=== PATIENT | male | born 2000 | race Caucasian/White ===

== ENCOUNTER 2022-01-13 10:35 | Inpatient (IN) | payer BC, SELFPAY ==
[2022-01-13 10:39] VITALS: BP 124/82; BP 136/90; PULSE 77; PULSE 90; RESP 16; TEMP 36.8; O2SAT 98; BMI 15.2
--- NOTE | 2022-01-13 10:40 | ED_ITS ---
HPI - Psych General Chief Complaint: Psychiatric Symptoms Stated Complaint: SI FROM AM AMENA Time Seen by Provider: 01/13/22 10:40 Source: patient Mode of arrival: EMS Limitations: no limitations History of Present Illness HPI Narrative: 21 yo male with hx of depression not on medications has been having SI thoughts with a plan for the past two weeks, let college staff know he had a knife in his room MD complaint: suicidal ideation and feels depressed Onset (ago): week(s) (2) Duration: getting worse History of same: No Relieving factors: none Exacerbating factors: other Context: significant life stressor Associated psychiatric symptoms: depression and suicidal ideation Associated symptoms: denies other symptoms Treatments prior to arrival: none If self harm: admits thoughts of self harm and has plan Related Data Allergies Allergy/AdvReac Type Severity Reaction Status Date / Time No Known Allergies Allergy Verified 01/13/22 10:54 Review of Systems Review of Systems: Constitutional : No Fever, No Chills ENT/Mouth : No Ear Pain, No Nasal Congestion, No sore throat Eyes: No Eye Pain, No Swelling, No Redness Cardiovascular : No Chest Pain, No SOB Respiratory : No Cough, No Sputum, No Dyspnea Gastrointestinal : No Nausea, No Vomiting, No Diarrhea, No Hematochezia, No Melena Genitourinary : No Dysuria, No Urinary Frequency, No Hematuria Musculoskeletal : No Myalgias Skin : No Skin Lesions, No rash Neuro : No Weakness, No Numbness, No Paresthesias, No Dizziness, No Headache Psych : positive Anxiety, positive Depression, positive SI no HI Heme/Lymph: No Lymphadenopathy Endocrine : No Polyuria, No Polydipsia All other systems reviewed and are negative [facility] Past Medical History Medical History (Updated 01/13/22 @ 11:12 by Annel Gaspar DO) Depression Social History Social History (Updated 01/13/22 @ 11:10 by Annel Gaspar DO) Alcohol intake: never Patient Tobacco Use Status: Never used Tobacco Smoked in Last 30 Days: No Use of substances other than those prescribed or required for medical reasons: No Physical Exam Vital Signs: Vital Signs: Last Vital Signs Temp 98.3 F 01/13/22 10:39 Pulse 90 01/13/22 10:39 Resp 16 01/13/22 10:39 BP 136/90 H 01/13/22 10:39 Pulse Ox 98 01/13/22 10:39 O2 Del Method 11/02/22 10:39 BMI result Body Mass Index 15.2 Appearance: Alert. Oriented X3. No acute distress. Calm and cooperative Eyes: Pupils equal, round and reactive to light. ENT: Pharynx normal. Neck: Normal inspection. Neck supple. CVS: Normal heart rate and rhythm. Pulses normal. Respiratory: No respiratory distress. Breath sounds normal. Abdomen: Soft and nontender. Skin: Skin warm and dry. Normal skin color. Normal skin turgor. Extremities: No lower extremity edema. No calf ttp Neuro: Oriented X 3. No motor deficit. No sensory deficit. CN2-12 intact Course Course Course Narrative: Physician observation started at 1111am Patient placed in physician observation because the patient needed more time for CARE team to assess the need for psych admission. At the time observation was started the patient's vitals were stable, patient is alert and oriented but slightly anxious. Neuro: nonfocal, CV RRR, Lungs clear MDM - Psych MDM Narrative Medical decision making narrative: 21 yo male with hx of depression here with SI and plan - will need labs, and referral to CARE team. Has no medical complaints. Discharge Plan Discharge Clinical Impression: Depression Patient Disposition: Still a Patient
--- NOTE | 2022-01-13 11:06 | PC.NURSE ---
Patient reports that he told [employer] that he had a knife in his room. He stopped a suicide attempt on Tuesday. Reports he has not done any school work for 2 weeks and that he is supposed to be tested for ADHD next week at some point.
[2022-01-13 11:40] LABS: MANUAL DIFF FLAG NO
[2022-01-13 11:41] LABS: Basophils Percent Auto 0.8 % (0-2); Eosinophils Absolute Auto 0.4 X10*3/uL (0.0-0.4); Hematocrit 44.6 % (42.0-52.0); Imm Gran Abs Auto 0.01 X10*3/uL (0.00-0.03); Imm Gran Pct Auto 0.2 % (0.0-0.4); Lymphocytes Absolute Auto 1.6 X10*3/uL (1.2-4.9); Lymphocytes Percent Auto 31.1 % (20-40); Mean Corpuscular HGB Conc 33.6 g/dl (31.0-36.0); Mean Corpuscular Hemoglobin 29.6 pg (27.0-33.0); Mean Corpuscular Volume 88.1 fL (80.0-98.0); Monocytes Absolute Auto 0.4 X10*3/uL (0.1-1.2); Neutrophils Absolute Auto 2.7 x10*3/uL (2.0-8.3); Neutrophils Percent Auto 53.9 % (45-73); Platelet Count 244 X10*3/uL (160-400); Red Blood Count 5.06 X10*6/uL (4.60-5.80); Red Cell Distribution Width 12.7 % (11.0-16.0)
[2022-01-13 11:58] LABS: Alanine Aminotransferase 12 U/L (0-40); Albumin Level 4.9 g/dL (3.5-5.0); Alkaline Phosphatase 92 U/L (39-117); Anion Gap 14 (12-20); Aspartate Amino Transferase 20 U/L (5-37); Bilirubin Direct 0.3 mg/dL (0.0-0.5); Bilirubin Total 0.6 mg/dL (0.0-1.0); Blood Urea Nitrogen 11 mg/dL (9-16); Calcium 9.5 mg/dL (8.4-10.2); Carbon Dioxide 25 mmol/L (22-29); Chloride 105 mmol/L (96-108); Creatinine Clr Calc Pharmacy 92.9; Estimated Glomerular Filt Rate > 60; Glucose Random 82 mg/dL (60-115); Sodium 140 mmol/L (135-145); Total Protein 7.4 g/dL (6.5-8.0)
[2022-01-13 12:01] LABS: Amphetamine Screen Urine Not Detected (Not Detect); Barbiturates, Urine Not Detected (Not Detect); Benzodiazepines Screen Urine Not Detected (Not Detect); COVID-19 Test Negative (Negative); Cannabinoid Screen Urine Not Detected (Not Detect); Cocaine Screen Urine Not Detected (Not Detect); Fentanyl, urine Not Detected (Not Detect); IDNOW Serial# 55D5AD1C; Opiate Screen Urine Not Detected (Not Detect); Phencyclidine Screen Urine Not Detected (Not Detect)
[2022-01-13 18:52] VITALS: BP 119/81; PULSE 90; RESP 16; TEMP 36.8; O2SAT 100
--- NOTE | 2022-01-13 19:19 | PC.NURSE ---
Addendum entered by Lyndsey Gallardo RN 01/14/22 00:07: report given to DUSTIN Marshall Original Note: report received from DUSTIN Rahman pt is alert and oriented no signs of acute distress notice breathing equally unlabored pt watching tv comfortably
--- NOTE | 2022-01-14 01:22 | PC.ADMIT ---
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 PT DID NOT DISCLOSE WHAT THE PLAN WAS, HE WAS VAGUE IN HIS ASSESSMENT. CONDITIONAL VOLUNTARY. 15 MIN CHECKS. PSYCH GROUP. COVID NEGATIVE. VITAL SIGNS WNL. NOT CURRENTLY ON ANY MEDICATIONS. THIS IS HIS FIRST PSYCHIATRIC ADMISSION. PT IS FROM [place] BUT HAS MOVED TO [place] FOR COLLEGE. PT HAS BEEN HAVING A DIFFICULT TIME FINDING MOTIVATION TO GO TO CLASSES AND WORK. PT APPEARS WITHDRAWN AND ANXIOUS. 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 PT REPORTS ISOLATING FOROM HIS FRIENDS RECENTLY. PT DENIES CURRENT PLAN OR INTENT AND WILL ALERT STAFF IF HAVING SUICIDAL THOUGHTS. NO HI/AH/VH. PT REPORTS MODERATE DEPRESSION AND MILD ANXIETY. PT REPORTS DIFFICULTY ATTENDING TO ADLS BUT IS EATING AND SLEEPING ADEQUATELY. PTS TOX SCREEN WAS NEGATIVE AND DOES NOT USE TOBACCO. PT REQUESTED THE INFLUENZA VACCINATION WHILE ADMITTED. PT FEELS SAFE ON THE UNIT.
[2022-01-14 07:00] VITALS: BMI 14.4
[2022-01-14 08:02] VITALS: BP 122/81; PULSE 86; RESP 18; TEMP 36.1; O2SAT 99
--- NOTE | 2022-01-14 08:27 | PC.NURSE ---
Pt declined flu shot at this time. Though previously requesting one, pt no longer wants.
--- NOTE | 2022-01-14 09:00 | ECG_ITS ---
Test Reason : qtc check Blood Pressure : / mmHG Vent. Rate : 070 BPM Atrial Rate : 070 BPM P-R Int : 172 ms QRS Dur : 082 ms QT Int : 354 ms P-R-T Axes : 060 091 067 degrees QTc Int : 382 ms Normal sinus rhythm Rightward axis Early repolarization Borderline ECG No previous ECGs available Referred By: Loly Rae Electronically Signed By:BART REMY MD
[2022-01-14 09:01] LABS: Cholesterol 174 mg/dL; HDL Cholesterol 65 mg/dL; LDL Cholesterol Calculated 95 mg/dl; Magnesium 2.3 mg/dL (1.6-2.6); Triglycerides 74 mg/dL
[2022-01-14 09:02] LABS: Estimated Average Glucose 100 mg/dL; Hemoglobin A1c % 5.1 %
[2022-01-14 09:24] LABS: Free T4 (Free Thyroxine) 1.14 ng/dL (0.71-1.85); Thyroid Stimulating Hormone 1.41 uIU/mL (0.32-4.0)
--- NOTE | 2022-01-14 09:58 | PC.NURSE ---
Pt declined to participate in Safety Tool documentation x2.
--- NOTE | 2022-01-14 10:20 | P.HPPS_ITS ---
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 Pt reports that over the years, he'll intermittently have times when he feels demotivated and not do work, but this only lasts for 3 day maxium and would resolve on it's own, often the deadline for work getting him to focus and compl ete work. For no clear reason, starting about 2 weeks ago, patient had a bout of feeling unmotivated and for the weekend, did not do any homework, he was not worried about it and assumed the he would soon get over it soon like always. However, this lack of motivation persisted and even towards the end of the week, w/ deadlines looming, he had no motivation to do anything...He was not initially aware of feeling depressed but endorses diminished interest in things, increased guilt, lower concentration, low appetite and sleeping more often; he also started to feel depressed. His friends got him to ok and email to his proferssors asking for extensions (and for a counseling appt), but says w/out their effort he'd have never bothered to email. Pt sleeping more, not going to class in the mornings. This past week he started having angry feeling toward himself and remembers saying over and over i hate myself. The other night, he got a knife and held it to his wrist. He does not think he had any intention or self-harm, but for some reason he wanted the experience of hold the knife as such. The next day he went to first counseling appointment who had him present to the ED. Pt denies any alcohol/drug abuse at all, seldom even drinking alcohol. Denies hx of manic behaviors or episodes; denies trauma hx. No hx of self-harm. No AVH. Pt denies any SI at all. He does acknowledge the the tho ughts about hating himself have likely been there for a long time, but that he's ignored them. Pt ammenable to starting Prozac (typewriter assembly and parts inspector reviewed risks/side- effects and printed/provided [employer] extensive list of potential side- effects). Past Psychiatric History: None No history of medication trials Medical Evaluation Reviewed: Hospitalist Sunny Pending [facility] Medical History (Updated 01/15/22 @ 09:12 by Irving Martinez MD) Depression MDD (major depressive disorder), recurrent episode Family History: Brother: rhonda Social History: grew up in [place] with his supportive parents and brother Sophomore year at [employer], majoring in chemistry Substance History: denies Trauma History: denies Diagnostics Vital Signs (24Hr): Vital Signs - 24 hr 01/13/22 10:39 01/13/22 18:52 01/14/22 08:02 Temperature 98.3 F 98.2 F 96.9 F Pulse Rate 90 90 86 Respiratory Rate 16 16 18 Blood Pressure 136/90 H 119/81 122/81 Pulse Oximetry 98 100 99 Oxygen Delivery Method Room Air Room Air Room Air BMI result Body Mass Index 15.2 Labs Results: 01/13/22 11:30 01/13/22 11:30 Labs: Laboratory Results - last 48 hr 01/13/22 01/13/22 01/13/22 11:30 11:30 11:30 WBC 5.0 RBC 5.06 Hgb 15.0 Hct 44.6 MCV 88.1 MCH 29.6 MCHC 33.6 RDW 12.7 Plt Count 244 MPV 10.0 Immature Gran % (Auto) 0.2 Neut % (Auto) 53.9 Lymph % (Auto) 31.1 [place] % (Auto) 7.0 Eos % (Auto) 7.0 H Baso % (Auto) 0.8 Lymph # (Auto) 1.6 [place] # (Auto) 0.4 Eos # (Auto) 0.4 Baso # (Auto) 0.0 Abs Immat Gran (auto) 0.01 Absolute Neuts (auto) 2.7 Absolute Nucleated RBC 0.000 Nucleated RBC % (auto) 0.0 Sodium 140 Potassium 4.0 Chloride 105 Carbon Dioxide 25 Anion Gap 14 BUN 11 Creatinine 0.82 Estim Creat Clear Calc 92.9 Estimated GFR > 60 Random Glucose 82 Estimat Average Glucose Hemoglobin A1c % Calcium 9.5 Magnesium Total Bilirubin 0.6 Direct Bilirubin 0.3 AST 20 ALT 12 Alkaline Phosphatase 92 Total Protein 7.4 Albumin 4.9 Triglycerides Cholesterol LDL Cholesterol, Calc HDL Cholesterol TSH Free T4 Urine Opiates Screen Urine Fentanyl Screen Ur Barbiturates Screen Ur Phencyclidine Scrn Ur Amphetamines Screen U Benzodiazepines Scrn Urine Cocaine Screen U Marijuana (THC) Screen COVID-19 (ROLAND) Negative COVID-19 Clin Com See Note 01/13/22 01/14/22 01/14/22 11:30 08:06 08:06 WBC RBC Hgb Hct MCV MCH MCHC RDW Plt Count MPV Immature Gran % (Auto) Neut % (Auto) Lymph % (Auto) [place] % (Auto) Eos % (Auto) Baso % (Auto) Lymph # (Auto) [place] # (Auto) Eos # (Auto) Baso # (Auto) Abs Immat Gran (auto) Absolute Neuts (auto) Absolute Nucleated RBC Nucleated RBC % (auto) Sodium Potassium Chloride Carbon Dioxide Anion Gap BUN Creatinine Estim Creat Clear Calc Estimated GFR Random Glucose Estimat Average Glucose 100 Hemoglobin A1c % 5.1 Calcium Magnesium 2.3 Total Bilirubin Direct Bilirubin AST ALT Alkaline Phosphatase Total Protein Albumin Triglycerides 74 Cholesterol 174 LDL Cholesterol, Calc 95 HDL Cholesterol 65 TSH 1.41 Free T4 1.14 Urine Opiates Screen Not Detected Urine Fentanyl Screen Not Detected Ur Barbiturates Screen Not Detected Ur Phencyclidine Scrn Not Detected Ur Amphetamines Screen Not Detected U Benzodiazepines Scrn Not Detected Urine Cocaine Screen Not Detected U Marijuana (THC) Screen Not Detected COVID-19 (ROLAND) COVID-19 Clin Com Meds/Allergies Allergies Allergies Allergy/AdvReac Type Severity Reaction Status Date / Time No Known Allergies Allergy Verified 01/13/22 10:54 Mental Status Exam Mental Status Exam Narrative: Pt is alert and oriented; behavior is cooperative, anxious; patient is not in distress; dressed in hospital attire with adequate hygiene; mood is described as anxious and affect congruent; eye contact appropriate; Speech is normal rate, volume and prosody and not pressured; no psychomotor agitation/retardation present; thought process is organized and goal directed; Thought content is on tx; otherwise pertinent to relevant topics and without any delusional content, paranoid ideations or grandiosity; denies any SI/HI. There is no evidence of perceptual disturbance. Patients insight and judgment appear intact. 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 Patient meets criteria for MDD; amenable to starting Prozac. Patient also scheduled for testing for ADHD at his school Currently SI has fully resolved and patient says he was never really close to hurting himself and remains future oriented, but is now aware that he is struggling with depression and needs help to process his feelings of low self-w orth. Patient has a going anxiety about missing more school work and is hoping to get back to school as soon as possible. Patient has support network, both friends and now with school administration as he already has counseling appointment established. Patient's parents both know. If patient remains stable he may be ready for discharge soon. Plan: CV Q 15 minute checks Will likely start Prozac after patient reads about side effect risks Seek to gather more collateral Patient educated on: diagnosis and medication risk/benefits Informed Consent: understands Reason for continued inpatient stay Substantial Risk for: rapid decompensation
[2022-01-14 10:29] LABS: Folate 7.9 ng/mL (> or = 4.0); Vitamin B12 507 pg/mL (200-900)
[2022-01-14 16:00] VITALS: BP 112/62; PULSE 71; TEMP 37.2
[2022-01-14] MEDS: Acetaminophen 325 MG TABLET 650 MG PO (21:33)
--- NOTE | 2022-01-15 09:16 | P.PNPSI_ITS ---
Subjective Subjective Date of Service: 01/15/22 Reason For Visit: Recurrent Major Depression w/ SI Interim History: pt reports he's feeling better today; he had visits from friends both yesterday and today. He feels he's getting help and says he knows he needs to continue with therapy on discharge; web content writer again discussed patient's intermittent self- deprecating thoughts and he continues to agree that therapy will be essential for this. He likes his therapist at school; he is a little bothered because she, in his mind, described inpatient unit in a very different way than his experience; however he says he realizes that bothers him more than it should and would like to resume with her. Patient read through extensive side effect risks of Prozac and agrees to start trial. Patient has talked to his mom who feels relieved. He is also talked to counselors at school and so far he has been told that most of his professors feel that he can make up the work missed over the past 1.5 weeks, something very relieving to patient as he wants to finish the semester. Mental Status Exam Mental Status Exam Narrative: Pt is alert and oriented; behavior is cooperative, friendly, calm; patient is not in distress; dressed in casual attire, well groomed with good hygiene; mood is described as better and affect congruent, brighter, calm; eye contact appropriate; Speech is normal rate, volume and prosody and not pressured; no psychomotor agitation/retardation present; thought process is organized and goal directed; Thought content is on tx, post discharge plans, school; otherwise pertinent to relevant topics and without any delusional content, paranoid ideations or grandiosity; denies any SI/HI. There is no evidence of perceptual disturbance. Patients insight and judgment are fair. Diagnostics Vital Signs (24Hr): Vital Signs - 24 hr 01/14/22 16:00 Temperature 98.9 F Pulse Rate 71 Blood Pressure 112/62 BMI result Body Mass Index 14.4 Labs Results: 01/13/22 11:30 01/13/22 11:30 Labs: Laboratory Results - last 48 hr 01/13/22 01/13/22 01/13/22 11:30 11:30 11:30 WBC 5.0 RBC 5.06 Hgb 15.0 Hct 44.6 MCV 88.1 MCH 29.6 MCHC 33.6 RDW 12.7 Plt Count 244 MPV 10.0 Immature Gran % (Auto) 0.2 Neut % (Auto) 53.9 Lymph % (Auto) 31.1 [place] % (Auto) 7.0 Eos % (Auto) 7.0 H Baso % (Auto) 0.8 Lymph # (Auto) 1.6 [place] # (Auto) 0.4 Eos # (Auto) 0.4 Baso # (Auto) 0.0 Abs Immat Gran (auto) 0.01 Absolute Neuts (auto) 2.7 Absolute Nucleated RBC 0.000 Nucleated RBC % (auto) 0.0 Sodium 140 Potassium 4.0 Chloride 105 Carbon Dioxide 25 Anion Gap 14 BUN 11 Creatinine 0.82 Estim Creat Clear Calc 92.9 Estimated GFR > 60 Random Glucose 82 Estimat Average Glucose Hemoglobin A1c % Calcium 9.5 Magnesium Total Bilirubin 0.6 Direct Bilirubin 0.3 AST 20 ALT 12 Alkaline Phosphatase 92 Total Protein 7.4 Albumin 4.9 Triglycerides Cholesterol LDL Cholesterol, Calc HDL Cholesterol Vitamin B12 Folate TSH Free T4 Urine Opiates Screen Urine Fentanyl Screen Ur Barbiturates Screen Ur Phencyclidine Scrn Ur Amphetamines Screen U Benzodiazepines Scrn Urine Cocaine Screen U Marijuana (THC) Screen COVID-19 (ROLAND) Negative COVID-19 Clin Com See Note 01/13/22 01/14/22 01/14/22 11:30 08:06 08:06 WBC RBC Hgb Hct MCV MCH MCHC RDW Plt Count MPV Immature Gran % (Auto) Neut % (Auto) Lymph % (Auto) [place] % (Auto) Eos % (Auto) Baso % (Auto) Lymph # (Auto) [place] # (Auto) Eos # (Auto) Baso # (Auto) Abs Immat Gran (auto) Absolute Neuts (auto) Absolute Nucleated RBC Nucleated RBC % (auto) Sodium Potassium Chloride Carbon Dioxide Anion Gap BUN Creatinine Estim Creat Clear Calc Estimated GFR Random Glucose Estimat Average Glucose 100 Hemoglobin A1c % 5.1 Calcium Magnesium 2.3 Total Bilirubin Direct Bilirubin AST ALT Alkaline Phosphatase Total Protein Albumin Triglycerides 74 Cholesterol 174 LDL Cholesterol, Calc 95 HDL Cholesterol 65 Vitamin B12 Folate TSH 1.41 Free T4 1.14 Urine Opiates Screen Not Detected Urine Fentanyl Screen Not Detected Ur Barbiturates Screen Not Detected Ur Phencyclidine Scrn Not Detected Ur Amphetamines Screen Not Detected U Benzodiazepines Scrn Not Detected Urine Cocaine Screen Not Detected U Marijuana (THC) Screen Not Detected COVID-19 (ROLAND) COVID-19 Clin Com 01/14/22 08:06 WBC RBC Hgb Hct MCV MCH MCHC RDW Plt Count MPV Immature Gran % (Auto) Neut % (Auto) Lymph % (Auto) [place] % (Auto) Eos % (Auto) Baso % (Auto) Lymph # (Auto) [place] # (Auto) Eos # (Auto) Baso # (Auto) Abs Immat Gran (auto) Absolute Neuts (auto) Absolute Nucleated RBC Nucleated RBC % (auto) Sodium Potassium Chloride Carbon Dioxide Anion Gap BUN Creatinine Estim Creat Clear Calc Estimated GFR Random Glucose Estimat Average Glucose Hemoglobin A1c % Calcium Magnesium Total Bilirubin Direct Bilirubin AST ALT Alkaline Phosphatase Total Protein Albumin Triglycerides Cholesterol LDL Cholesterol, Calc HDL Cholesterol Vitamin B12 507 Folate 7.9 TSH Free T4 Urine Opiates Screen Urine Fentanyl Screen Ur Barbiturates Screen Ur Phencyclidine Scrn Ur Amphetamines Screen U Benzodiazepines Scrn Urine Cocaine Screen U Marijuana (THC) Screen COVID-19 (ROLAND) COVID-19 Clin Com Medications Medications Current Medications Acetaminophen (Acetaminophen 325 Mg Tablet) 650 mg PO Q6H PRN PRN Reason: Headache/Pain Mild Scale (1-3) Last Admin: 01/14/22 21:33 Dose: 650 mg Al Hydroxide/Mg Hydroxide (Magnesium Hydrox/Alum Hydrox 30 Ml Oral.Susp) 30 ml PO Q6H PRN PRN Reason: Heartburn/Nausea Hydroxyzine HCl (Hydroxyzine Hcl 25 Mg Tablet) 25 mg PO Q6H PRN PRN Reason: Anxiety Magnesium Hydroxide (Milk Of Magnesia 30 Ml Oral.Susp) 30 ml PO DAILY PRN PRN Reason: Constipation Trazodone HCl (Trazodone Hcl 50 Mg Tablet) 50 mg PO BEDTIME PRN PRN Reason: Insomnia Allergies Allergies Allergy/AdvReac Type Severity Reaction Status Date / Time No Known Allergies Allergy Verified 01/13/22 10:54 Assessment & Plan Assessment & Plan (1) MDD (major depressive disorder), recurrent episode: Status: Acute Code(s): F33.9 - Major depressive disorder, recurrent, unspecified Plan Patient is a 21-year-old male, 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 Patient meets criteria for MDD; amenable to starting Prozac. Patient also scheduled for testing for ADHD at his school Currently SI has fully resolved and patient says he was never really close to hurting himself and remains future oriented, but is now aware that he is struggling with depression and needs help to process his feelings of low self- worth. Patient has a going anxiety about missing more school work and is hoping to get back to school as soon as possible. Patient has support network, both friends and now with school administration as he already has counseling a ppointment established. Patient's parents both know. If patient remains stable he may be ready for discharge soon. 01/15 improved mood, denies depression denies any SI at all; agrees to start Prozac having reviewed side effect list. Patient is future oriented and hoping to be able to continue classes as soon as possible. Talked with his counselor, mother and friends and is grateful for the support. Social work is in contact with school counselor and it is web content writer's opinion that patient's report is consistent with counselors. Plan: 3 day Q 15 minute checks Start Prozac 10mg I spent minutes with the patient and/or on the patient floor today, greater than?50% of which was spent counseling/coordinating care. Patient educated on: diagnosis, medication risk/benefits and therapeutic strategies Informed Consent: understands Reason for contiued inpatient stay Substantial Risk for: med/psych decompensation
[2022-01-15 10:34] VITALS: BP 127/77; PULSE 105; RESP 18; TEMP 36.6; O2SAT 98
[2022-01-15] MEDS: FLUoxetine HCl 10 MG CAPSULE PO (15:37)
[2022-01-15 18:36] VITALS: BP 120/68; PULSE 89; TEMP 36.9
[2022-01-16 06:00] VITALS: BP 120/77; PULSE 80; RESP 18; TEMP 36.3; O2SAT 99
[2022-01-16] MEDS: FLUoxetine HCl 10 MG CAPSULE PO (09:40)
--- NOTE | 2022-01-16 10:14 | HO.PSYCHPN ---
Subjective Subjective Date of Service: 01/16/22 Reason For Visit: Recurrent Major Depression w/ SI Interim History: Patient reports good mood and that he is overall doing well; no SI at all;. Says he is tolerating Prozac well and does not notice any side effects. Talked to his mom who is very worried but he and she had a good conversation. Patient remains hopeful to get back to school soon as possible. No SI Mental Status Exam Mental Status Exam Narrative: Pt is alert and oriented; behavior is cooperative, friendly, calm; patient is not in distress; dressed in casual attire, well groomed with good hygiene; mood is described as good and affect congruent, bright, calm; eye contact appropriate; Speech is normal rate, volume and prosody and not pressured; no psychomotor agitation/retardation present; thought process is organized and goal directed; Thought content is on tx, post discharge plans, school; otherwise pertinent to relevant topics and without any delusional content, paranoid ideations or grandiosity; denies any SI/HI. There is no evidence of perceptual disturbance. Patients insight and judgment are fair. Diagnostics Vital Signs (24Hr): Vital Signs - 24 hr 01/15/22 10:34 01/15/22 18:36 Temperature 97.8 F 98.5 F Pulse Rate 105 H 89 Respiratory Rate 18 Blood Pressure 127/77 120/68 Pulse Oximetry 98 Oxygen Delivery Method Room Air BMI result Body Mass Index 14.4 Labs Results: 01/13/22 11:30 01/13/22 11:30 Labs: Laboratory Results - last 48 hr 01/14/22 08:06 Vitamin B12 507 Folate 7.9 Medications Medications Current Medications Acetaminophen (Acetaminophen 325 Mg Tablet) 650 mg PO Q6H PRN PRN Reason: Headache/Pain Mild Scale (1-3) Last Admin: 01/14/22 21:33 Dose: 650 mg Al Hydroxide/Mg Hydroxide (Magnesium Hydrox/Alum Hydrox 30 Ml Oral.Susp) 30 ml PO Q6H PRN PRN Reason: Heartburn/Nausea Fluoxetine HCl (Fluoxetine Hcl 10 Mg Capsule) 10 mg PO DAILY [facility] Last Admin: 01/16/22 09:40 Dose: 10 mg Hydroxyzine HCl (Hydroxyzine Hcl 25 Mg Tablet) 25 mg PO Q6H PRN PRN Reason: Anxiety Magnesium Hydroxide (Milk Of Magnesia 30 Ml Oral.Susp) 30 ml PO DAILY PRN PRN Reason: Constipation Trazodone HCl (Trazodone Hcl 50 Mg Tablet) 50 mg PO BEDTIME PRN PRN Reason: Insomnia Allergies Allergies Allergy/AdvReac Type Severity Reaction Status Date / Time No Known Allergies Allergy Verified 01/13/22 10:54 Assessment & Plan Assessment & Plan (1) MDD (major depressive disorder), recurrent episode: Status: Acute Code(s): F33.9 - Major depressive disorder, recurrent, unspecified Plan Patient is a 21-year-old male, 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 Patient meets criteria for MDD; amenable to starting Prozac. Patient also scheduled for testing for ADHD at his school Currently SI has fully resolved and patient says he was never really close to hurting himself and remains future oriented, but is now aware that he is struggling with depression and needs help to process his feelings of low self-worth. Patient has anxiety about missing more school work and is hoping to get back to school as soon as possible. Patient has support network, both friends and now with school administration as he already has counseling appointment established. Patient's parents both know. If patient remains stable he may be ready for discharge soon. 01/15 improved mood, denies depression denies any SI at all; agrees to start Prozac having reviewed side effect list. Patient is future oriented and hoping to be able to continue classes as soon as possible. Talked with his counselor, mother and friends and is grateful for the support. Social work is in contact with school counselor and it is life insurance underwriter's opinion that patient's report is consistent with counselors. 01/16 remains in good mood, no SI, feeling better, hopeful about his future. Hoping to discharge as soon as possible. Tolerating Prozac well. Patient has 3 day notice. Will continue to monitor patient however he remains stable as expected, he is not seem to be in imminent risk for harm to self or others. He has good outpatient support with friends, counselors. Plan: 3 day Q 15 minute checks Continue Prozac 10mg I spent minutes with the patient and/or on the patient floor today, greater than?50% of which was spent counseling/coordinating care. Patient educated on: diagnosis and medication risk/benefits Informed Consent: understands Reason for contiued inpatient stay Substantial Risk for: stable for discharge
--- NOTE | 2022-01-16 11:56 | PC.NURSE ---
No treatment team meeting today because it is the weekend.
[2022-01-16 17:39] VITALS: BP 131/78; PULSE 77; RESP 18; O2SAT 99
[2022-01-17 06:00] VITALS: BP 115/68; PULSE 76; RESP 18; O2SAT 99
[2022-01-17] MEDS: FLUoxetine HCl 10 MG CAPSULE PO (09:03)
--- NOTE | 2022-01-17 13:51 | P.PNPSI_ITS ---
Subjective Subjective Date of Service: 01/17/22 Reason For Visit: Recurrent Major Depression w/ SI Interim History: Patient shares that he is pretty good and feels that depression remains resolved; no SI. Patient said he reflected on past conversations and that while his anxiety does not interfere with his daily functioning, he realizes he structured is day so as to avoid anxiety provoking things; he agrees that there are things he would like to do but does not because of anxiety. Patient understands that Prozac can help with this and finds this realization helpful. Patient says that intermittently he will have self-deprecating thoughts but they are fleeting and not bothersome. He says it happens a lot when he looks in the mirror and sees his body. Industrial Electrical Engineer and patient discussed his history with scoliosis which has been present since infancy and required patient to wear back brace is all his life, having back surgery at 13 years old and then again at 16 years old. Patient is not sure how this has affected him but agrees it probably has shaped his perspective and that it needs to be examined more. Patient still hopeful for discharge as soon as possible. Said he talked to his mom again today it was a good conversation and that his parents are feeling more reassu red. Mental Status Exam Mental Status Exam Narrative: Pt is alert and oriented; behavior is cooperative, friendly, calm; patient is not in distress; dressed in casual attire, well groomed with good hygiene; mood is described as pretty good and affect congruent, bright, calm; eye contact appropriate; Speech is normal rate, volume and prosody and not pressured; no psychomotor agitation/retardation present; thought process is organized and goal directed; Thought content is on tx, post discharge plans, school; otherwise pertinent to relevant topics and without any delusional content, paranoid ideations or grandiosity; denies any SI/HI. There is no evidence of perceptual disturbance. Patients insight and judgment are fair. Diagnostics Vital Signs (24Hr): Vital Signs - 24 hr 01/16/22 17:39 01/17/22 06:00 Pulse Rate 77 76 Respiratory Rate 18 18 Blood Pressure 131/78 115/68 Pulse Oximetry 99 99 Oxygen Delivery Method Room Air Room Air BMI result Body Mass Index 14.4 Labs Results: 01/13/22 11:30 01/13/22 11:30 Medications Medications Current Medications Acetaminophen (Acetaminophen 325 Mg Tablet) 650 mg PO Q6H PRN PRN Reason: Headache/Pain Mild Scale (1-3) Last Admin: 01/14/22 21:33 Dose: 650 mg Al Hydroxide/Mg Hydroxide (Magnesium Hydrox/Alum Hydrox 30 Ml Oral.Susp) 30 ml PO Q6H PRN PRN Reason: Heartburn/Nausea Fluoxetine HCl (Fluoxetine Hcl 10 Mg Capsule) 10 mg PO DAILY [facility] Last Admin: 01/17/22 09:03 Dose: 10 mg Hydroxyzine HCl (Hydroxyzine Hcl 25 Mg Tablet) 25 mg PO Q6H PRN PRN Reason: Anxiety Magnesium Hydroxide (Milk Of Magnesia 30 Ml Oral.Susp) 30 ml PO DAILY PRN PRN Reason: Constipation Trazodone HCl (Trazodone Hcl 50 Mg Tablet) 50 mg PO BEDTIME PRN PRN Reason: Insomnia Allergies Allergies Allergy/AdvReac Type Severity Reaction Status Date / Time No Known Allergies Allergy Verified 01/13/22 10:54 Assessment & Plan Assessment & Plan (1) MDD (major depressive disorder), recurrent episode: Status: Acute Code(s): F33.9 - Major depressive disorder, recurrent, unspecified Plan Patient is a 21-year-old male, 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 Patient meets criteria for MDD; amenable to starting Prozac. Patient also scheduled for testing for ADHD at his school Currently SI has fully resolved and patient says he was never really close to hurting himself and remains future oriented, but is now aware that he is struggling with depression and needs help to process his feelings of low self- worth. Patient has anxiety about missing more school work and is hoping to get back to school as soon as possible. Patient has support network, both friends and now with school administration as he already has counseling appointment established. Patient's parents both know. If patient remains stable he may be ready for discharge soon. 01/15 improved mood, denies depression denies any SI at all; agrees to start Prozac having reviewed side effect list. Patient is future oriented and hoping to be able to continue classes as soon as possible. Talked with his counselor, mother and friends and is grateful for the support. Social work is in contact with school counselor and it is production underwriter's opinion that patient's report is consistent with counselors. 01/16 remains in good mood, no SI, feeling better, hopeful about his future. Hoping to discharge as soon as possible. Tolerating Prozac well. Patient has 3 day notice. Will continue to monitor patient however he remains stable as expected, he is not seem to be in imminent risk for harm to self or others. He has good outpatient support with friends, counselors. 01/17 remains in good mood, reflective, future oriented, forthcoming in 1 on 1 sessions. Appropriate with peers and staff and demonstrating good behavioral and impulse control. Denies any side effects. Sleeping and eating well. Hoping for discharge as soon as possible Plan: 3 day Q 15 minute checks Continue Prozac 10mg I spent minutes with the patient and/or on the patient floor today, greater than?50% of which was spent counseling/coordinating care. Patient educated on: diagnosis, medication risk/benefits and therapeutic strategies Informed Consent: understands Reason for contiued inpatient stay Substantial Risk for: stable for discharge
[2022-01-17 18:00] VITALS: BP 121/88; PULSE 89; RESP 18; TEMP 36.3; O2SAT 99
[2022-01-18 08:50] VITALS: BP 120/71; PULSE 77; RESP 16; TEMP 37.2; O2SAT 99
[2022-01-18] MEDS: FLUoxetine HCl 10 MG CAPSULE PO (08:51)
--- NOTE | 2022-01-18 14:44 | PM.PSYDC ---
DS: Providers Provider Date of Service: 01/18/22 Date of admission: 01/13/22 23:20 Date of discharge: 01/18/22 Primary care physician: Nonstaff Physician Attending physician on admission: Irving Martinez Attending physician on discharge: Irving Martinez DS: Diagnosis Discharge Diagnosis (1) MDD (major depressive disorder), recurrent episode: Status: Acute DS: Medications Discharge Medications Home Medications: Previous Rx's Medication Instructions Recorded fluoxetine 10 mg capsule 10 mg PO DAILY 30 days #30 caps 01/18/22 Mental Status Exam Mental Status Exam Narrative: Pt is alert and oriented; behavior is cooperative, friendly, calm; patient is not in distress; dressed in casual attire, well groomed with good hygiene; mood is described as good and affect congruent, bright, calm; eye contact appropriate; Speech is normal rate, volume and prosody and not pressured; no psychomotor agitation/retardation present; thought process is organized and goal directed; Thought content is on tx, post discharge plans, school; otherwise pertinent to relevant topics and without any delusional content, paranoid ideations or grandiosity; denies any SI/HI. There is no evidence of perceptual disturbance. Patients insight and judgment are fair. Data Data Completed and Pending Completed studies during hospitalization [Text1]: 01/13/22 01/13/22 01/13/22 11:30 11:30 11:30 WBC 5.0 RBC 5.06 Hgb 15.0 Hct 44.6 MCV 88.1 MCH 29.6 MCHC 33.6 RDW 12.7 Plt Count 244 MPV 10.0 Immature Gran % (Auto) 0.2 Neut % (Auto) 53.9 Lymph % (Auto) 31.1 [place] % (Auto) 7.0 Eos % (Auto) 7.0 H Baso % (Auto) 0.8 Lymph # (Auto) 1.6 [place] # (Auto) 0.4 Eos # (Auto) 0.4 Baso # (Auto) 0.0 Abs Immat Gran (auto) 0.01 Absolute Neuts (auto) 2.7 Absolute Nucleated RBC 0.000 Nucleated RBC % (auto) 0.0 Sodium 140 Potassium 4.0 Chloride 105 Carbon Dioxide 25 Anion Gap 14 BUN 11 Creatinine 0.82 Estim Creat Clear Calc 92.9 Estimated GFR > 60 Random Glucose 82 Estimat Average Glucose Hemoglobin A1c % Calcium 9.5 Magnesium Total Bilirubin 0.6 Direct Bilirubin 0.3 AST 20 ALT 12 Alkaline Phosphatase 92 Total Protein 7.4 Albumin 4.9 Triglycerides Cholesterol LDL Cholesterol, Calc HDL Cholesterol Vitamin B12 Folate TSH Free T4 Urine Opiates Screen Urine Fentanyl Screen Ur Barbiturates Screen Ur Phencyclidine Scrn Ur Amphetamines Screen U Benzodiazepines Scrn Urine Cocaine Screen U Marijuana (THC) Screen COVID-19 ([facility]) Negative COVID-19 Clin Com See Note 01/13/22 01/14/22 01/14/22 11:30 08:06 08:06 WBC RBC Hgb Hct MCV MCH MCHC RDW Plt Count MPV Immature Gran % (Auto) Neut % (Auto) Lymph % (Auto) [place] % (Auto) Eos % (Auto) Baso % (Auto) Lymph # (Auto) [place] # (Auto) Eos # (Auto) Baso # (Auto) Abs Immat Gran (auto) Absolute Neuts (auto) Absolute Nucleated RBC Nucleated RBC % (auto) Sodium Potassium Chloride Carbon Dioxide Anion Gap BUN Creatinine Estim Creat Clear Calc Estimated GFR Random Glucose Estimat Average Glucose 100 Hemoglobin A1c % 5.1 Calcium Magnesium 2.3 Total Bilirubin Direct Bilirubin AST ALT Alkaline Phosphatase Total Protein Albumin Triglycerides 74 Cholesterol 174 LDL Cholesterol, Calc 95 HDL Cholesterol 65 Vitamin B12 Folate TSH 1.41 Free T4 1.14 Urine Opiates Screen Not Detected Urine Fentanyl Screen Not Detected Ur Barbiturates Screen Not Detected Ur Phencyclidine Scrn Not Detected Ur Amphetamines Screen Not Detected U Benzodiazepines Scrn Not Detected Urine Cocaine Screen Not Detected U Marijuana (THC) Screen Not Detected COVID-19 ([facility]) COVID-19 Clin Com 01/14/22 08:06 WBC RBC Hgb Hct MCV MCH MCHC RDW Plt Count MPV Immature Gran % (Auto) Neut % (Auto) Lymph % (Auto) [place] % (Auto) Eos % (Auto) Baso % (Auto) Lymph # (Auto) [place] # (Auto) Eos # (Auto) Baso # (Auto) Abs Immat Gran (auto) Absolute Neuts (auto) Absolute Nucleated RBC Nucleated RBC % (auto) Sodium Potassium Chloride Carbon Dioxide Anion Gap BUN Creatinine Estim Creat Clear Calc Estimated GFR Random Glucose Estimat Average Glucose Hemoglobin A1c % Calcium Magnesium Total Bilirubin Direct Bilirubin AST ALT Alkaline Phosphatase Total Protein Albumin Triglycerides Cholesterol LDL Cholesterol, Calc HDL Cholesterol Vitamin B12 507 Folate 7.9 TSH Free T4 Urine Opiates Screen Urine Fentanyl Screen Ur Barbiturates Screen Ur Phencyclidine Scrn Ur Amphetamines Screen U Benzodiazepines Scrn Urine Cocaine Screen U Marijuana (THC) Screen COVID-19 ([facility]) COVID-19 Clin Com DS: Summary Hospital Course Hospital Course: HPI: Patient is a 21-year-old male, 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 Patient meets criteria for MDD; amenable to starting Prozac.? Patient also scheduled for testing for ADHD at his school Hospital course: On admission, pt cooperative, calm but not happy about being admitted; some depression but this to seem to be resolving. SI had fully resolved and patient says he was never really close to hurting himself and remains future oriented, but he acknowledges that this incident has made him aware that he is struggling with depression and needs help to process his feelings of low self-worth.? Patient has anxiety about missing more school work and is hoping to get back to school as soon as possible.?Patient started on Prozac which was tolerated. Patient reported that depression was fully resolved and his mood was definitely better. He developed deeper insight into himself and was able to relate his history of scoliosis, being in back braces much of his life to present day self-deprecating thoughts which he agrees are likely related to depression. Patient also agreed that therapy would be helpful and he plans to continue once returning to school. Patient remained in good mood, without any SI and hopeful about discharging soon. He was appropriate with peers and staff and demonstrated good behavioral and impulse control throughout his stay on the unit. Patient eating and sleeping well on the unit. He assured information writer and community mental health social worker that he would reach out for help if he felt unsafe or even before this, if negative thoughts started becoming overwhelming or interfering; no history of prior attempts. Patient's 3 day notice coming due and patient is not in imminent risk for harm to self or others. Patient has support network of friends and therapist with counseling appointment established. He is eager to get back to his school work.? His Patient's parents both know and are supportive.? Although patient has 3 day notice is due tomorrow, information writer does not see any benefit to keeping this 21-year-old on an adult inpatient unit any longer as treatment is complete, he's maximized resources available and he is safe, stable and appropriate to return to the community for treatment. Furthermore if patient stays another day on the unit, he will just miss another day of school which will only cause anxiety. Bath Solution Maker discussed this with Paige, counselor at school who agrees that he is appropriate for discharge today and she will see him tomorrow. Patient's request for discharge honored. Time spent discussing smoking cessation with patient: 3 to 10 minutes Status at Discharge Functional status at discharge: independent ambulation Overall status at discharge: patient is back to baseline Time Spent with Patient Time attestation: Total time spent providing and/or coordinating discharge services: Time spent: Greater than 30 minutes Discharge Plan Discharge Anticipated Discharge Date/Time: 01/18/22 16:00 Patient Disposition: Home, Self-Care Discharge Diagnosis: MDD, recurrent, severe w/out psychosis in full remission Referrals: Therapy (Carmen Gentile) [Other] - 01/20/22 9:00 am (Appointment is IN PERSON at [facility] on Tuesday at 9am, 01/19 ) Psychiatrist/Medication Management (Abigail Preciado) [Other] - 01/27/22 2:00 pm ( Appointment is VIRTUAL over ZOOM on January 27 at 2pm A ZOOM link will be sent to you before appointment) Physician,Nonstaff [Primary Care Provider] - 1 Week Discharge Medications: New fluoxetine 10 mg Capsule 10 mg PO DAILY 30 Days Qty: 30 0RF Discharge Orders: Discharge Order (Routine); Ordered 01/18/22 Ordered By: Irving Martinez Diet: Regular diet Activity on Discharge: As tolerated Stand Alone Forms: Patient Portal Discharge page Care Plan Goals: Maintain mood and safe behaviors Take medications as prescribed Practice coping skills Continue with outpatient providers and reach out to them as needed Health Concerns: Mood stability and behaviors Scoliosis Plan of Treatment: Follow up with your PCP, psychiatric provider and other outpatient providers regarding above concerns Take medications as prescribed Assessment: Risk assessment at time of discharge:? Patient was interviewed prior to discharge and found to be fully oriented and without any SI or HI. Patient has insight and demonstrates good judgment in terms of wanting to pursue treatment. Patient is not in imminent risk of harm to self or others and has a safety plan that includes presenting to the closest ER or calling 911 if feeling unsafe.? Patient has been observed closely by nursing and unit staff throughout admission; patient has not engaged in any behaviors that suggest dangerousness to self or others and has demonstrated appropriate behaviors and impulse control
== END 2022-01-18 16:05 | disposition home or self-care (01) | DRG 751 ==
LOC: HO.ED 11:22 → HO.PM5 23:41
PROVIDERS: Clinical Nurse Specialist Psychiatric/Mental Health, Adult; Admitting Provider Psychiatry & Neurology Psychiatry; Emergency Provider Emergency Medicine; Visit Provider Psychiatry & Neurology Psychiatry
DX: F33.9 Major depressive disorder, recurrent, unspecified (principal); R45.851 Suicidal ideations; Z20.822 Contact with and (suspected) exposure to COVID-19; Z79.899 Other long term (current) drug therapy
CPT/HCPCS: 36415; 80048; 80061; 80076; 80307; 82607; 82746; 83036; 83735; 84439; 84443; 85025; 87635; 93005; 99284